=== PATIENT | male | born 1990 | race African-American/Black ===

== ENCOUNTER 2017-08-25 01:13 | Emergency (ER) | payer SELFPAY ==
[2017-08-25 01:42] VITALS: BP 142/86; PULSE 88; TEMP 97.6; BMI 33.2
[2017-08-25] MEDS ORDERED: IBUPROFEN 600 MG TABLET (FP) PO ONE ×2 (01:47→01:52)
--- NOTE | 2017-08-25 01:47 | PDOC ---
History of Present Illness - General Chief Complaint: Pain Stated Complaint: RT HAND PAIN Time Seen by Provider: 08/25/17 01:41 History Source: Patient Exam Limitations: No Limitations - History of Present Illness Initial Comments: 08/25/17 03:12 This is a right-handed 27-year-old male without significant past medical history presents with right hand pain status post getting hand caught between clothes washer and the wall. Patient states she was helping his father move his washing machine 3 days ago when he lost balance causing him to tilt to the side catching his right hand between the washing machine and the concrete wall. Patient states he believed the pain and swelling would have improved without intervention but was concerned when the swelling remained after the 3 days. Past History - Past Medical History Allergies/Adverse Reactions: Allergies Allergy/AdvReac Type Severity Reaction Status Date / Time No Known Allergies Allergy Verified 08/25/17 01:41 Home Medications: Ambulatory Orders Naproxen [Naprosyn -] 500 mg PO BID PRN #20 tablet 02/04/16 COPD: No - Suicide/Smoking/Psychosocial Hx Smoking History: Never smoked Have you smoked in the past 12 months: No Information on smoking cessation initiated: No Hx Alcohol Use: No Drug/Substance Use Hx: No Substance Use Type: None Review of Systems - Review of Systems Able to Perform ROS?: Yes Is the patient limited Ecuadorean proficient: No Constitutional: No: Symptoms Reported HEENTM: No: Symptoms Reported Respiratory: No: Symptoms reported Cardiac (ROS): No: Symptoms Reported ABD/GI: No: Symptoms Reported : No: Symptoms Reported Musculoskeletal: Yes: See HPI Integumentary: No: Symptoms Reported Neurological: No: Symptoms reported *Physical Exam - Vital Signs Last Vital Signs Temp Pulse Resp BP Pulse Ox 97.6 F 88 18 142/86 99 08/25/17 01:41 08/25/17 01:41 08/25/17 01:41 08/25/17 01:41 08/25/17 01:41 - Physical Exam Extremity: positive: Normal Capillary Refill, Swelling (Dorsal aspect of the right hand over the fifth metacarpal), Other (tenderness to dorsal aspect of the right hand over the fifth metacarpal. full sensation noted to fingers of the right hand) ED Treatment Course - RADIOLOGY Radiology Studies Ordered: Category Date Time Status HAND- RIGHT [RAD] Stat Radiology 08/25/17 01:45 Ordered Medical Decision Making - Medical Decision Making 08/25/17 03:18 A/P: 27-year-old right-handed male with right hand pain status post crush injury Swelling and tenderness to the dorsum of the right hand over the fifth metacarpal Full sensation noted distal to the injury Capillary refill less than 2 seconds No pseudoclaw present Bony deformity palpated to the volar aspect of the fifth metacarpal X-ray, Motrin, reassess X-rays read by me: Mildly displaced fracture of the neck of the fifth metacarpal Angulation less than 40 Nurse practitioner made ulnar gutter splint applied to the right hand. I will discharge the patient home with follow-up with orthopedics. *DC/Admit/Observation/Transfer Diagnosis at time of Disposition: Fracture of fifth metacarpal bone of right hand Qualifiers: Encounter type: initial encounter Fracture type: closed Metacarpal location: neck - Discharge Dispostion Disposition: HOME Condition at time of disposition: Stable Decision to Admit order: No - Referrals Referrals: Ryan Jennings MD [Primary Care Provider] - Andrea Rodriguez MD [Staff Physician] - - Patient Instructions Additional Instructions: Take Tylenol or Motrin as needed for pain. Follow manufacturers instructions for appropriate dosage. Apply ice for 20 minutes and removed for at least 20 minutes before reapplying the ice. Whenever possible keep your hand elevated to decrease swelling. You've been given the number for an orthopedist. Make an appointment for evaluation within the next 5 days. Return to emergency department for discoloration of the fingers or hand, numbness or tingling to the fingers or hand, worsening pain, or any other concerns. Thank you very much for choosing us to provide your emergent healthcare needs. - Post Discharge Activity Forms/Work/School Notes: Back to Work
== END 2017-08-25 03:38 | disposition home or self-care (01) ==
LOC: JER 01:13
PROC: 2W3CX1Z Immobilization of Right Lower Arm using Splint (ICD-10-PCS; principal; 2017-08-25)
DX: S62.336A Displaced fracture of neck of fifth metacarpal bone, right hand, initial encounter for closed fracture (principal); W23.0XXA Caught, crushed, jammed, or pinched between moving objects, initial encounter; Y93.89 Activity, other specified; Y92.89 Other specified places as the place of occurrence of the external cause; Y99.8 Other external cause status
CPT/HCPCS: 73130-TC-RT-FY; 99283-25